=== PATIENT | female | born 1980 | race Caucasian/White ===

== ENCOUNTER 2016-05-08 09:59 | Day surgery (SDC) | payer OTHER ==
--- NOTE | 2016-05-06 16:19 | HP ---
DATE OF SURGERY: 05/08/2016 HISTORY OF PRESENT ILLNESS: The patient is a 35 year-old with history of epigastric pain radiating to her chest associated with some nausea, vomiting, bad heartburn with pizza in the past. She is doing a little better with bland food. Ultrasound showed cholelithiasis. I felt she had symptomatic cholelithiasis, chronic cholecystitis. PAST MEDICAL HISTORY: Denies any chronic illnesses. PAST SURGICAL HISTORY: Tubal. MEDICATIONS: None. ALLERGIES: NKDA. FAMILY HISTORY: Negative. SOCIAL HISTORY: No smoking or alcohol abuse. REVIEW OF SYSTEMS: Ten systems reviewed. No chest pain or palpitations other systems negative or noncontributory as above and per admission assessment. PHYSICAL EXAMINATION: GENERAL: No acute distress. HEENT: Sclerae nonicteric. NECK: No JVD. CHEST: Equal excursion, nonlabored breathing. CVS: Regular rate and rhythm. ABDOMEN: Soft, had some minimal tenderness epigastrium. No peritoneal signs. EXTREMITIES: No significant edema. NEURO: Alert, moving extremities symmetrically. No gross motor deficits noted. Ultrasound showed cholelithiasis. IMPRESSION: Symptomatic cholelithiasis, probable chronic cholecystitis. I feel the patient will benefit from cholecystectomy. She is shown the risk sheet, explained the procedure detail, but not limited to bleeding or infection, risk of trocar injury or hernia, small risk of bowel, bladder or blood vessel injury, small risk of bile leak, bile duct injury, retained stone or sludge possibly requiring further procedure either open or ERCP, general risk of anesthesia, deep venous thrombosis, pulmonary embolism, pneumonia, perioperative risk of aches, pains, bloating, constipation and/or loose stools possibly even chronic in nature. She understands all the above as well as the possibility of inability to improve her symptoms with the procedure possibly requiring endoscopy, other studies or procedures. She understands and agrees to the planned procedure, will proceed with outpatient laparoscopic cholecystectomy with possible open.
[~2016-05-08 09:59] MED LIST: BICITRA 30 ML CUP ONE; BICITRA 30 ML CUP PO ONE; BRIDION 200MG/2ML IV ONE; DILAUDID 1 MG/ML INJECTION IJ ONE; DIPRIVAN 200 MG/20 ML IV ONE; Decadron 4 MG INJ IV ONE; Lactated Ringers 1,000 ML IV ONE; Lactated Ringers 1,000 ML IV SCH; MEFOXIN 2 GM PREMIX** 50 ML IV ONE; OFIRMEV 100 ML IV ONE; Pepcid 20 MG VIAL IV ONE; Quelicin Fliptop 200 MG/10 ML IJ ONE; SUBLIMAZE 250 MCG/5 ML IJ ONE; Sensorcaine 0.25% 10 ML ONE; TORAdol 30 mg Injection IJ ONE; Versed 2 MG/2 ML Injection IV ONE; Zemuron 100 MG/10 ML IJ ONE; Zofran 4 MG/2 ML VIAL IV ONE
[2016-05-08] MEDS ORDERED: DEMEROL 50 MG ONE (12:21)
--- NOTE | 2016-05-08 13:18 | OP ---
SURGERY DATE: 05/08/16 SURGERY TIME: 1122 PREOPERATIVE DIAGNOSIS: 1. SYMPTOMATIC CHOLELITHIASIS, CHRONIC CHOLECYSTITIS. POSTOPERATIVE DIAGNOSIS: 1. SYMPTOMATIC CHOLELITHIASIS, CHRONIC CHOLECYSTITIS. PROCEDURE: 1. Laparoscopic cholecystectomy. SURGEON: Dr. Jackson Singleton. ANESTHESIA: General. ESTIMATED BLOOD LOSS: Minimal. INDICATIONS: As noted above. Risks and benefits explained in detail, but not limited to. Consent was obtained. DESCRIPTION OF PROCEDURE AND FINDINGS: The patient was taken to the OR. General anesthesia was induced. The abdomen was prepped and draped in the usual sterile fashion. After official time-out, no disagreement in planned procedure. Transverse incision made at the supraumbilical area. Fascia grasped and pulled upward. Veress needle inserted. Tested with saline. Pneumoperitoneum accomplished insufflating from an opening pressure of 0-15. 11 mm bladeless port and camera were inserted without difficulty followed by two 5 mm right upper quadrant ports and 5 mm epigastric port. The gallbladder was grasped. Had some fibrofatty omental adhesions. These were dissected from posterolateral to anterior fashion. Slowly, carefully the extensive inflammation of the cystic duct/infundibular area was slowly, carefully well skeletonized so the critical view was obtained both anteriorly and posteriorly. The cystic artery was clipped X 3 and divided in the usual fashion followed by clipping the cystic duct. Clipped X 3 and divided well away from the visible common duct. Again, this was all after the critical view had been obtained anteriorly and posteriorly. The gallbladder was slowly, carefully dissected free from its dense almost concrete attachments to the liver bed clipping additional oozing side branches off the cystic artery directly on the gallbladder wall as necessary. The gallbladder slowly, carefully dissected free from its dense almost concrete attachments to the liver bed staying directly on the gallbladder wall. Just prior to releasing the final attachments to the anterior end of the liver, one of the graspers tore a small hole in the thin wall of the anterior port of the gallbladder spilling a small amount of bile. There was no gross evidence of any stone spillage. This was suction irrigated as well as possible. Just prior to releasing the final attachments to the anterior edge of the liver, the liver bed reinspected. The clips noted to be in place in the cystic duct/cystic artery stumps. There were no signs of any active bleeding or bile leakage. It was felt there was no benefit of drain placement at this point. The gallbladder released from the final attachments to the anterior edge of the liver, placed in a Pleatman's sac, pulled out the epigastrium, and passed off. Port was replaced. A copious amount of irrigation irrigated lateral to the liver and the subhepatic space, irrigating until clear. Liver bed reinspected. Clips noted to be in place in the cystic duct/cystic artery stumps. There were no signs of any active bleeding or bile leakage. It was felt there was no benefit of any drain placement at this point. The fascial defects at the 10-11 port site in the epigastrium/umbilical area closed with puncture closure device under direct vision with the camera and #1 Vicryl. Pneumoperitoneum decompressed. Wounds irrigated out. Skin incisions closed with 4-0 Vicryl. Steri-strips and sterile dressing applied. 0.25% Marcaine local had been injected along each skin incision and fascia defect. The patient tolerated the procedure well. There were no immediate complications. Findings were discussed with the family out in the waiting area.
[2016-05-08 14:32] VITALS: BP 123/57; PULSE 80; O2SAT 98
== END 2016-05-08 14:00 | disposition home or self-care (01) ==
LOC: SDC 09:59
PROVIDERS: ATTEND Surgery
PROC: 0FT44ZZ Resection of Gallbladder, Percutaneous Endoscopic Approach (ICD-10-PCS; principal; 2016-05-08)
DX: K80.10 Calculus of gallbladder with chronic cholecystitis without obstruction (principal)
CPT/HCPCS: 00790; 36415; 84703; 88304; J0330; J0694; J1100; J1170; J1885; J2175; J2250; J2405; J2704; J3010

== ENCOUNTER 2018-09-20 09:09 | Emergency (ER) | payer BC, OTHER ==
[2018-09-20] MEDS ORDERED: PROTONIX 40 MG IV IV ONE ×2 (09:36→09:50)
[2018-09-20] MEDS ORDERED: Zofran 4 MG/2 ML VIAL IV ONE (09:36)
[2018-09-20] MEDS ORDERED: Sodium Chloride 0.9% 1000 ML 1,000 ML IV STA ×2 (09:36→11:33)
[2018-09-20] MEDS ORDERED: Zofran 4 MG/2 ML VIAL ONE (09:50)
[2018-09-20] MEDS ORDERED: Sodium Chloride 0.9% 1000 ML 1,000 ML ONE ×2 (09:50→11:40)
--- NOTE | 2018-09-20 09:57 | ERPHSYRPT ---
- History of Present Illness Time Seen by Provider: 09/20/18 09:30 Patient Subjective Stated Complaint: pt here for vomitng for 2 days, more than 10 times today, with chills, and aches all over, headache, pt denies fever, Triage Nursing Assessment: pt alert, walked in, resp easy, skin w/d/p,abd soft, pt states her urine is dark at home and she is having burning with urination, no edema , moves all ext well Physician History: PATIENT COMPLAINS OF ACUTE ONSET OF FREQUENT EMESIS, DRY HEAVES FOR 3 DAYS ASSOCIATED WITH FLANK PAIN, URINARY SYMPTOMS AND LEFT SIDED ABDOMINAL PAIN. HAD 10 EPISODES OF EMESIS TODAY. DENIES FEVER, CHILLS, OR DIARRHEA. Timing/Duration: day(s) Activities at Onset: none Quality: aching, cramping Abdominal Pain Onset Location: LLQ, flank Pain Radiation: other (BILATERAL FLANK PAIN) Severity of Pain-Max: moderate Severity of Pain-Current: moderate Modifying Factors: Improves With: urinating, vomiting Associated Symptoms: vomiting, weakness Previous symptoms: no prior history Allergies/Adverse Reactions: No Known Drug Allergies Allergy (Verified 05/08/16 10:31) Home Medications: No Home Meds [No Home Meds] 1 ea UD 04/27/16 [History] Hx Tetanus, Diphtheria Vaccination/Date Given: No Hx Influenza Vaccination/Date Given: No Hx Pneumococcal Vaccination/Date Given: No Immunizations Up to Date: Yes - Review of Systems Constitutional: No Fever, No Chills Eyes: No Symptoms Ears, Nose, & Throat: No Symptoms Respiratory: No Symptoms, No Cough, No Dyspnea Cardiac: No Symptoms, No Chest Pain, No Edema, No Syncope Abdominal/Gastrointestinal: Abdominal Pain, Nausea, Vomiting, No Diarrhea Genitourinary Symptoms: Dysuria, Frequency, Hematuria, Hesitancy Musculoskeletal: No Symptoms, No Back Pain, No Neck Pain Skin: No Rash Neurological: No Dizziness, No Focal Weakness, No Sensory Changes Psychological: No Symptoms Endocrine: No Symptoms All Other Systems: Reviewed and Negative - Past Medical History Pertinent Past Medical History: No Neurological History: No Pertinent History ENT History: No Pertinent History Cardiac History: No Pertinent History Respiratory History: No Pertinent History Endocrine Medical History: No Pertinent History Musculoskeletal History: No Pertinent History GI Medical History: No Pertinent History History: No Pertinent History Psycho-Social History: No Pertinent History Female Reproductive Disorders: No Pertinent History Other Medical History: tubal ligation - Past Surgical History Past Surgical History: Yes Neuro Surgical History: No Pertinent History Cardiac: No Pertinent History Respiratory: No Pertinent History Gastrointestinal: Cholecystectomy Genitourinary: No Pertinent History Musculoskeletal: No Pertinent History Female Surgical History: Tubal Ligation - Social History Smoking Status: Current every day smoker Exposure to second hand smoke: Yes Drug Use: none Patient Lives Alone: No - Female History Hx Last Menstrual Period: 7 days ago Hx Now: (UNKNOWN) - Nursing Vital Signs Nursing Vital Signs: Initial Vital Signs Temperature 102.0 F 09/20/18 09:18 Pulse Rate 88 09/20/18 09:18 Respiratory Rate 16 09/20/18 09:18 Blood Pressure 127/66 09/20/18 09:18 O2 Sat by Pulse Oximetry 100 09/20/18 09:18 Pain Scale Pain Intensity 0 - Physical Exam General Appearance: no apparent distress, alert Eye Exam: PERRL/EOMI, eyes nml inspection Ears, Nose, Throat Exam: normal ENT inspection, pharynx normal, moist mucous membranes Neck Exam: normal inspection, non-tender, supple, full range of motion Respiratory Exam: normal breath sounds, lungs clear, No respiratory distress Cardiovascular Exam: regular rate/rhythm, normal heart sounds Gastrointestinal/Abdomen Exam: soft, normal bowel sounds, tenderness (MINIMAL LLQ TENDERNESS), No mass Back Exam: normal inspection, normal range of motion, CVA tenderness (MODERATE BILATERAL CVA TENDERNESS), No vertebral tenderness Extremity Exam: normal inspection, normal range of motion, pelvis stable Neurologic Exam: alert, oriented x 3, cooperative, normal mood/affect, nml cerebellar function, sensation nml, No motor deficits Skin Exam: normal color, warm, dry SpO2 Interpretation: normal SpO2: 100 - CT Exams Abdomen/Pelvis CT Interpretation: Discussed w/radiologist (LEFT UPPER RENAL CORTICL SUBTLE HYPATTENUATION, RULE OUT FOCAL NEPHRITIS) Ordered Tests: Active Orders 24 hr Category Date Time Status IV Insertion STAT Care 09/20/18 09:36 Active ABDOMEN AND PELVIS W CONTRAST [CT] Stat Exams 09/20/18 09:37 Completed AMYLASE Stat Lab 09/20/18 09:58 Completed BLOOD CULTURE Stat Lab 09/20/18 09:58 Received CBC W DIFF Stat Lab 09/20/18 09:58 Completed CMP Stat Lab 09/20/18 09:58 Completed CULTURE,URINE Stat Lab 09/20/18 09:58 Received LIPASE Stat Lab 09/20/18 09:58 Completed UA W/RFX UR CULTURE Stat Lab 09/20/18 09:58 Completed Medication Summary Generic Name Dose Route Start Last Admin Trade Name Jared PRN Reason Stop Dose Admin Sodium Chloride 1,000 mls @ 999 mls/hr 09/20/18 11:33 09/20/18 11:40 Sodium Chloride 0.9% 1000 Ml IV 09/20/18 12:33 999 mls/hr .Q1H1M STA Administration Discontinued Medications Generic Name Dose Route Start Last Admin Trade Name Jared PRN Reason Stop Dose Admin Acetaminophen 650 mg 09/20/18 10:15 09/20/18 10:26 Tylenol 325 Mg PO 09/20/18 10:16 650 mg STAT STA Administration Acetaminophen Confirm 09/20/18 10:23 Tylenol 325 Mg Administered 09/20/18 10:24 Dose 650 mg .ROUTE .STK-MED ONE Fentanyl Citrate 100 mcg 09/20/18 10:17 09/20/18 11:08 Sublimaze 100 Mcg/2 Ml IV 09/20/18 10:18 100 mcg STAT ONE Administration Fentanyl Citrate Confirm 09/20/18 11:07 Sublimaze 100 Mcg/2 Ml Administered 09/20/18 11:08 Dose 100 mcg .ROUTE .STK-MED ONE Sodium Chloride 1,000 mls @ 999 mls/hr 09/20/18 09:36 09/20/18 09:57 Sodium Chloride 0.9% 1000 Ml IV 09/20/18 10:36 999 mls/hr .Q1H1M STA Administration Sodium Chloride Confirm 09/20/18 09:50 Sodium Chloride 0.9% 1000 Ml Administered 09/20/18 09:51 Dose 1,000 mls @ ud .ROUTE .STK-MED ONE Ceftriaxone Sodium/Dextrose 2 g in 50 mls @ 100 mls/hr 09/20/18 10:15 10:27 Rocephin 2 Gm-D5w 50ml Bag IV 09/20/18 10:44 100 ml/hr STAT STA 100 mls/hr Administration Ceftriaxone Sodium/Dextrose Confirm 09/20/18 10:23 Rocephin 2 Gm-D5w 50ml Bag Administered 09/20/18 10:24 Dose 2 g in 50 mls @ ud IV .STK-MED ONE Sodium Chloride Confirm 09/20/18 11:40 Sodium Chloride 0.9% 1000 Ml Administered 09/20/18 11:41 Dose 1,000 mls @ ud .ROUTE .STK-MED ONE Ondansetron HCl 4 mg 09/20/18 09:36 09/20/18 09:57 Zofran 4 Mg/2 Ml Vial IV 09/20/18 09:37 4 mg STAT ONE Administration Ondansetron HCl Confirm 09/20/18 09:50 Zofran 4 Mg/2 Ml Vial Administered 09/20/18 09:51 Dose 4 mg .ROUTE .STK-MED ONE Pantoprazole Sodium 40 mg 09/20/18 09:36 09/20/18 09:57 Protonix 40 Mg Iv IV 09/20/18 09:37 40 mg STAT ONE Administration Pantoprazole Sodium Confirm 09/20/18 09:50 Protonix 40 Mg Iv Administered 09/20/18 09:51 Dose 40 mg IV .STK-MED ONE Lab/Rad Data: Laboratory Result Diagrams 09/20/18 09:58 09/20/18 09:58 Laboratory Results 09/20/18 09/20/18 09/20/18 Range/Units 09:58 09:58 09:58 WBC 9.8 (4.0-10.5) K/mm3 RBC 3.77 L (4.1-5.4) M/mm3 Hgb 11.9 L (12.0-16.0) gm/dl Hct 35.1 (35-47) % MCV 93.1 (78-100) fl MCH 31.5 (26-32) pg MCHC 33.9 (32-36) g/dl RDW 12.6 (11.5-14.0) % Plt Count 201 (150-450) K/mm3 MPV 9.9 H (6-9.5) fl Gran % 76.5 H (36.0-66.0) % Eos # (Auto) 0.02 (0-0.5) Absolute Lymphs (auto) 1.17 (1.0-4.6) Absolute Monos (auto) 1.11 (0.0-1.3) Lymphocytes % 11.9 L (24.0-44.0) % Monocytes % 11.3 (0.0-12.0) % Eosinophils % 0.2 (0.00-5.0) % Basophils % 0.1 (0.0-0.4) % Absolute Granulocytes 7.53 H (1.4-6.9) Basophils # 0.01 (0-0.4) Sodium 141 (137-145) mmol/L Potassium 3.8 (3.5-5.1) mmol/L Chloride 105 (98-107) mmol/L Carbon Dioxide 26 (22-30) mmol/L Anion Gap 13.1 (5-15) MEQ/L BUN 12 (7-17) mg/dL Creatinine 0.80 (0.52-1.04) mg/dL Estimated GFR > 60.0 ML/MIN Glucose 105 (74-106) mg/dL Calcium 8.9 (8.4-10.2) mg/dL Total Bilirubin 0.60 (0.2-1.3) mg/dL AST 15 (14-36) U/L ALT 12 (0-35) U/L Alkaline Phosphatase 70 (38-126) U/L Serum Total Protein 6.8 (6.3-8.2) g/dL Albumin 3.8 (3.5-5.0) g/dL Amylase 45 (30-110) U/L Lipase 28 (23-300) U/L Urine Color YELLOW (YELLOW) Urine Appearance CLOUDY (CLEAR) Urine pH 6.0 (5-6) Ur Specific [place] 1.016 (1.005-1.025) Urine Protein 100 (Negative) Urine Ketones NEGATIVE (NEGATIVE) Urine Blood MODERATE (0-5) Giovanny/ul Urine Nitrite POSITIVE (NEGATIVE) Urine Bilirubin NEGATIVE (NEGATIVE) Urine Urobilinogen NEGATIVE (0-1) mg/dL Ur Leukocyte Esterase MODERATE (NEGATIVE) Urine WBC (Auto) >100 (0-5) /HPF Urine RBC (Auto) 16-25 (0-2) /HPF U Epithel Cells (Auto) FEW (FEW) /HPF Urine Bacteria (Auto) PACKED (NEGATIVE) /HPF Urine Mucus (Auto) SLIGHT (NEGATIVE) /HPF Urine Culture Reflexed YES (NO) Urine Glucose NEGATIVE (NEGATIVE) mg/dL - Progress Progress: improved Progress Note: 09/20/18 09:58 IV NORMAL SALINE BOLUS 1 LITER/HR X 2, ZOFRAN 4MG, IV PROTONIX 40MG IV, TYLENOL 650MG ORALLY 09/20/18 12:18, URINE POSITIVE WBC>100, RBC 16-25, SCOOTER PACKED, AFTER 2 SETS OF BLOOD CULTURES ADMINISTERED ROCEPHIN 2GM IVPB Counseled pt/family regarding: lab results, diagnosis, need for follow-up, rad results - Departure Departure Disposition: Home Clinical Impression: ACUTE CYSTITIS Condition: Stable Critical Care Time: No Referrals: [facility] [Primary Care Provider] - Additional Instructions: ANTIBIOTIC LEVAQUIN 500MG DAILY FOR 10 DAYS. PYRIDIUM 100MG AFTER MEALS FOR 2 DAYS. DRINK PLENTY OF FLUIDS. NORCO 5/325 EVERY 6 HOURS FOR PAIN. ZOFRAN 4MG EVERY 4 HOURS FOR NAUSEA. CONSULT YOUR PRIMARY CARE PROVIDER FOR FOLLOWUP. Prescriptions: Hydrocodone/APAP 5-325 Tab^^^ [Dora 5-325 Tablet^^^] 1 each PO Q6HPRN PRN #8 tablet MDD 4 PRN Reason: Pain Ondansetron ODT 4 MG [Zofran Odt 4 mg] 4 mg PO Q6H PRN PRN #10 tab.rapdis PRN Reason: Nausea Levofloxacin [Levaquin] 500 mg PO DAILY #10 tablet Phenazopyridine HCl [Pyridium] 100 mg PO PC #6 tablet
[2018-09-20 10:01] LABS: BASOPHIL % 0.1 % (0.0-0.4); Basophil (Absolute #) 0.01 (0-0.4); Eosinophil % 0.2 % (0.00-5.0); Eosinophil (Absolute #) 0.02 (0-0.5); Granulocyte Absolute (ANC) 7.53 (1.4-6.9); Granulocytes % 76.5 % (36.0-66.0); Hematocrit 35.1 % (35-47); Hemoglobin 11.9 gm/dl (12.0-16.0); Lymphocyte (Absolute #) 1.17 (1.0-4.6); Lymphocytes % 11.9 % (24.0-44.0); Mean Cell Volume 93.1 fl (78-100); Mean Corpuscular Hgb Concent. 33.9 g/dl (32-36); Mean Platelet Volume 9.9 fl (6-9.5); Monocyte (Absolute #) 1.11 (0.0-1.3); Monocytes % 11.3 % (0.0-12.0); Platelet Count 201 K/mm3 (150-450); Red Blood Count 3.77 M/mm3 (4.1-5.4); Red Cell Distribution Width 12.6 % (11.5-14.0); White Blood Count 9.8 K/mm3 (4.0-10.5)
[2018-09-20 10:02] LABS: Mean Corpuscular Hemoglobin 31.5 pg (26-32)
[2018-09-20 10:08] LABS: Appearance CLOUDY (CLEAR); Bacteria PACKED /HPF (NEGATIVE); Bilirubin NEGATIVE (NEGATIVE); Blood MODERATE Ery/ul (0-5); Epithelial Cells FEW /HPF (FEW); Glucose NEGATIVE (NEGATIVE); Ketones NEGATIVE (NEGATIVE); Leukocyte Esterase MODERATE (NEGATIVE); Mucus SLIGHT /HPF (NEGATIVE); Nitrite POSITIVE (NEGATIVE); Protein,Urine Dip 100 (Negative); Specific Gravity 1.016 (1.005-1.025); Urobilinogen NEGATIVE mg/dL (0-1); WBC >100 /HPF (0-5)
[2018-09-20 10:15] LABS: ALBUMIN 3.8 g/dL (3.5-5.0); ALKALINE PHOSPHATASE 70 U/L (38-126); AMYLASE 45 U/L (30-110); ANION GAP 13.1 MEQ/L (5-15); BLOOD UREA NITROGEN 12 mg/dL (7-17); CHLORIDE 105 mmol/L (98-107); Calcium 8.9 mg/dL (8.4-10.2); Carbon Dioxide 26 mmol/L (22-30); Glucose 105 mg/dL (74-106); LIPASE 28 U/L (23-300); Potassium 3.8 mmol/L (3.5-5.1); SGOT/AST 15 U/L (14-36); SGPT/ALT 12 U/L (0-35); SODIUM 141 mmol/L (137-145); Total Protein 6.8 g/dL (6.3-8.2)
[2018-09-20] MEDS ORDERED: ROCEPHIN 2 Gm-D5w 50ML BAG** 2 G/50 ML IVPB IV STA (10:15)
[2018-09-20] MEDS ORDERED: TYLENOL 325 MG PO STA (10:15)
[2018-09-20] MEDS ORDERED: SUBLIMAZE 100 MCG/2 ML IV ONE (10:17)
[2018-09-20] MEDS ORDERED: TYLENOL 325 MG ONE (10:23)
[2018-09-20] MEDS ORDERED: ROCEPHIN 2 Gm-D5w 50ML BAG** 2 G/50 ML IVPB IV ONE (10:23)
[2018-09-20] MEDS ORDERED: SUBLIMAZE 100 MCG/2 ML ONE (11:07)
--- NOTE | 2018-09-20 11:08 | XRAY ---
Indication: Lower abdominal pain. Nausea and vomiting. Difficulty urinating. Multiple contiguous axial images obtained through the abdomen and pelvis using 80 cc Isovue 370 contrast only. Comparison: March 10, 2016. Lung bases demonstrates stable tiny left base calcified granulomas. No infiltrate or effusion. Heart is not enlarged. Noncontrasted stomach and bowel loops appear nonobstructed. Normal appendix. Markedly enlarging uterus with multiple fibroids, largest measuring 8.4 x 6.9 cm on the left. Interval cholecystectomy. No free fluid/air. Increasing splenomegaly today measuring 14.7 cm in greatest axial dimension. Left upper renal pole demonstrates subtle wedge-shaped cortical hypoattenuation, possible focal nephritis. Remaining liver, pancreas, spleen, adrenal glands, kidneys, ureters, bladder, and aorta appear unremarkable. No pathologic retroperitoneal lymphadenopathy. Osseous structures intact. No ventral or inguinal hernias. Impression: 1. Left upper renal cortical subtle hypoattenuation. Rule out focal nephritis. 2. Interval enlarging uterus with multiple fibroids. 3. Increasing splenomegaly. CT DI 21.78
[2018-09-20 13:49] VITALS: BP 108/46; PULSE 78; O2SAT 98
== END 2018-09-20 13:49 | disposition home or self-care (01) ==
LOC: ED 09:09
DX: N30.00 Acute cystitis without hematuria (principal)
CPT/HCPCS: 36000; 36415; 74177; 80053; 81001; 82150; 83690; 85025; 87040; 87077; 87086; 87186; 96360; 96361; 96365; 96374; 96375; 99284; J0696; J2405; J3010; A9270-GY

== ENCOUNTER 2019-03-25 16:48 | Inpatient (IN) | payer BC, OTHER ==
[2019-05-27] MEDS ORDERED: Lactated Ringers 1,000 ML IV ONE ×3 (08:18→11:07)
[2019-05-27] MEDS ORDERED: Lactated Ringers 1,000 ML IV SCH (08:30)
[2019-05-27 08:48] LABS: Hematocrit 37.1 % (35-47); Hemoglobin 12.4 gm/dl (12.0-16.0); Mean Cell Volume 94.4 fl (78-100); Mean Corpuscular Hemoglobin 31.6 pg (26-32); Mean Corpuscular Hgb Concent. 33.4 g/dl (32-36); Mean Platelet Volume 9.1 fl (7.5-11.0); Platelet Count 238 K/mm3 (150-450); Red Blood Count 3.93 M/mm3 (4.1-5.4); Red Cell Distribution Width 12.5 % (11.5-14.0); White Blood Count 6.3 K/mm3 (4.0-10.5)
[2019-05-27 09:01] LABS: ALBUMIN 3.9 g/dL (3.5-5.0); ALKALINE PHOSPHATASE 76 U/L (38-126); ANION GAP 12.3 MEQ/L (5-15); BLOOD UREA NITROGEN 12 mg/dL (7-17); CHLORIDE 106 mmol/L (98-107); Calcium 8.9 mg/dL (8.4-10.2); Carbon Dioxide 26 mmol/L (22-30); Creatinine 1 0.68 mg/dL (0.52-1.04); Glucose 98 mg/dL (74-106); Potassium 4.5 mmol/L (3.5-5.1); SGOT/AST 21 U/L (14-36); SGPT/ALT 12 U/L (0-35); SODIUM 140 mmol/L (137-145); Total Protein 6.8 g/dL (6.3-8.2)
[2019-05-27] MEDS ORDERED: KEFZOL 1 GM/50 ML PREMIX** 1 GM/50 ML IVPB IV SCH ×2 (09:15→18:00)
[2019-05-27] MEDS ORDERED: Sensorcaine 0.25% 10 ML ONE (09:47)
[2019-05-27] MEDS ORDERED: SUBLIMAZE 100 MCG/2 ML ONE ×2 (09:53→11:43)
[2019-05-27] MEDS ORDERED: Zemuron 100 MG/10 ML ONE ×3 (09:53→10:49)
[2019-05-27] MEDS ORDERED: Quelicin Fliptop 200 MG/10 ML ONE (09:53)
[2019-05-27] MEDS ORDERED: DIPRIVAN 200 MG/20 ML IV ONE (09:53)
[2019-05-27] MEDS ORDERED: Zofran 4 MG/2 ML VIAL ONE (11:10)
[2019-05-27] MEDS ORDERED: BRIDION 200MG/2ML IV ONE (11:10)
[2019-05-27] MEDS ORDERED: TORAdol 30 mg Injection ONE (11:10)
[2019-05-27] MEDS ORDERED: Decadron 4 MG INJ ONE ×2 (11:10)
[2019-05-27] MEDS ORDERED: DILAUDID 2 MG INJECTION ONE (11:21)
[2019-05-27 11:28] LABS: ABO TYPING O; Antibody Screen NEGATIVE (NEGATIVE); RH TYPING POSITIVE
[2019-05-27 13:13] LABS: Appearance CLEAR (CLEAR); Bilirubin NEGATIVE (NEGATIVE); Blood NEGATIVE Ery/ul (0-5); Glucose NEGATIVE (NEGATIVE); Ketones NEGATIVE (NEGATIVE); Leukocyte Esterase NEGATIVE (NEGATIVE); Nitrite NEGATIVE (NEGATIVE); Protein,Urine Dip NEGATIVE (Negative); Specific Gravity 1.006 (1.005-1.025); Urobilinogen NEGATIVE mg/dL (0-1)
[2019-05-27] MEDS ORDERED: MORPHINE SULFATE 4 MG INJ IV PRN ×2 (13:14)
[2019-05-27] MEDS ORDERED: MORPHINE SULFATE 2 MG INJ IV PRN (13:14)
[2019-05-27] MEDS ORDERED: PERCOCET TABLET 5/325MG PO PRN (13:17)
[2019-05-27] MEDS ORDERED: Zofran 4 MG/2 ML VIAL IV PRN (13:17)
[2019-05-27] MEDS: Lactated Ringers 1,000 ML IV SCH ×2 (14:09→22:44)
[2019-05-27] MEDS: Reglan 10 MG/2 ML IV SCH ×2 (14:10→21:47)
--- NOTE | 2019-05-27 14:41 | OP ---
SURGERY DATE/TIME: 05/27/2019 0955 PREOPERATIVE DIAGNOSIS: Symptomatic fibroid uterus. POSTOPERATIVE DIAGNOSIS: Symptomatic fibroid uterus. PROCEDURE: Laparotomy, supracervical hysterectomy, bilateral salpingectomy SURGEON: Franck March D.O. COMMODITY SPECIALIST: Lolita White, surgical elastic knitter. ANESTHESIA: General. ESTIMATED BLOOD LOSS: 300 cc. COMPLICATIONS: None. INDICATIONS: The risks, benefits, indications and alternatives of the procedure were reviewed with the patient prior to procedure. The patient understood the risk of infection, bleeding, bowel injury, bladder injury, ureteral injury, incisional hernia, possible pelvic infection and thromboembolic disorder. The patient understands all of the risk factors and desires to have this procedure as a possible need to alleviate her current medical condition. DESCRIPTION OF PROCEDURE AND FINDINGS: At this point the patient is taken to the operating room where she was placed in supine position, given general anesthesia, prepped and draped in usual sterile fashion. A Pfannenstiel incision was made approximately 2 cm above the symphysis pubis and extended sharply to the rectus fascia. The fascia was then incised bilaterally with curved Wise scissors. The muscle of the anterior abdominal wall was in the midline by sharp and blunt dissection. The peritoneum was then grasped between two pickups elevated and entered sharply with Metzenbaum scissors. The pelvis is then examined and noted to have approximately 16 week size uterus with multiple fibroids with the largest being posterior uterus approximately 8 x 8 cm in dimension. At this point tenaculum was used and grasped the uterus bringing out through the incisional site where at this point the Impact LigaSure was used and was placed on the left adnexa where it was taken through the utero-ovarian ligament sparing the ovary and it was clamped, coagulated and cut taking down through the round ligament and taking down through the vasculature of left lower uterine segment. From that point the anterior lip of broad ligament was then incised on bladder reflection to the midline on its side. The same procedure was performed on the right side where the LigaSure Impact was taken through the right utero-ovarian ligament taking to round ligament and towards the uterine vasculature where the anterior lip of broad ligament was incised and the bladder was then gently dissected off of the lower uterine segment and the cervix with sponge stick. From this point the uterine artery was skeletonized bilaterally clamped between clamps trisected and suture ligated with 0 Vicryl suture. Again hemostasis was assured. From this point the Bovie tip was then used to amputate the uterus from the cervical stump and was done so without complication. The cervical stump was then closed with continuous stitch of 0 Vicryl suture. From this point bilateral fallopian tubes were then lifted and the LigaSure Impact was then placed on the mesosalpinx region excising the fallopian tubes bilaterally and was done so without complication. Bilateral ovaries appeared to be within normal limits and again were not removed during the procedure. From this point copious irrigation was then performed. At this point all lap, needle, sponge and instruments were removed from the patient's abdomen. The fascia was then closed with running 0 Vicryl. Hemostasis assured. The subcutaneous tissue is closed with 3-0 Vicryl suture and the skin was closed with absorbable wilma called Insorb and subsequent Dermabond placed on the incisional site. Sponge, lap, needle and instrument counts were correct x2. The patient was then taken to the recovery room in stable condition.
[2019-05-27] MEDS: TORAdol 30 mg Injection IV SCH ×2 (18:06→23:30)
[2019-05-27 18:14] LABS: Hemoglobin 11.8 gm/dl (12.0-16.0); Mean Cell Volume 93.8 fl (78-100); Mean Corpuscular Hemoglobin 31.6 pg (26-32); Mean Corpuscular Hgb Concent. 33.7 g/dl (32-36); Mean Platelet Volume 8.9 fl (7.5-11.0); Platelet Count 236 K/mm3 (150-450); Red Blood Count 3.73 M/mm3 (4.1-5.4); Red Cell Distribution Width 12.4 % (11.5-14.0); White Blood Count 15.5 K/mm3 (4.0-10.5)
[2019-05-28 04:37] LABS: Hematocrit 31.7 % (35-47); Hemoglobin 10.6 gm/dl (12.0-16.0); Mean Cell Volume 94.3 fl (78-100); Mean Corpuscular Hemoglobin 31.5 pg (26-32); Mean Corpuscular Hgb Concent. 33.4 g/dl (32-36); Mean Platelet Volume 8.8 fl (7.5-11.0); Platelet Count 228 K/mm3 (150-450); Red Blood Count 3.36 M/mm3 (4.1-5.4); Red Cell Distribution Width 12.4 % (11.5-14.0)
[2019-05-28 04:58] LABS: ALKALINE PHOSPHATASE 65 U/L (38-126); ANION GAP 9.8 MEQ/L (5-15); BLOOD UREA NITROGEN 9 mg/dL (7-17); CHLORIDE 107 mmol/L (98-107); Calcium 8.3 mg/dL (8.4-10.2); Carbon Dioxide 24 mmol/L (22-30); Creatinine 1 0.59 mg/dL (0.52-1.04); Glucose 125 mg/dL (74-106); Potassium 4.4 mmol/L (3.5-5.1); SGOT/AST 22 U/L (14-36); SGPT/ALT 13 U/L (0-35); SODIUM 137 mmol/L (137-145); Total Protein 5.6 g/dL (6.3-8.2)
[2019-05-28] MEDS: Reglan 10 MG/2 ML IV SCH ×3 (05:49→21:24)
[2019-05-28] MEDS: TORAdol 30 mg Injection IV SCH ×4 (05:49→23:29)
[2019-05-28] MEDS: Lactated Ringers 1,000 ML IV SCH ×2 (06:06→16:58)
[2019-05-28] MEDS: KEFZOL 1 GM/50 ML PREMIX** 1 GM/50 ML IVPB IV SCH ×2 (09:49→18:11)
[2019-05-28 17:32] LABS: Absolute Neutrophil Ct (ANC) 10.37 (1.4-6.9); BASOPHIL % 0.1 % (0.0-0.4); Basophil (Absolute #) 0.02 (0-0.4); Eosinophil % 0.3 % (0.00-5.0); Eosinophil (Absolute #) 0.05 (0-0.5); Hematocrit 31.8 % (35-47); Hemoglobin 10.4 gm/dl (12.0-16.0); Lymphocyte (Absolute #) 2.92 (1.0-4.6); Lymphocytes % 20.3 % (24.0-44.0); Mean Cell Volume 96.4 fl (78-100); Mean Corpuscular Hemoglobin 31.5 pg (26-32); Mean Corpuscular Hgb Concent. 32.7 g/dl (32-36); Neutrophil % 72.3 % (36.0-66.0); Platelet Count 198 K/mm3 (150-450); Red Cell Distribution Width 12.7 % (11.5-14.0); White Blood Count 14.4 K/mm3 (4.0-10.5)
[2019-05-29] MEDS: Lactated Ringers 1,000 ML IV SCH (02:15)
[2019-05-29] MEDS: Reglan 10 MG/2 ML IV SCH (03:29)
[2019-05-29 04:41] LABS: Hematocrit 27.8 % (35-47); Mean Cell Volume 97.2 fl (78-100); Mean Corpuscular Hemoglobin 31.5 pg (26-32); Mean Corpuscular Hgb Concent. 32.4 g/dl (32-36); Mean Platelet Volume 9.1 fl (7.5-11.0); Platelet Count 153 K/mm3 (150-450); Red Blood Count 2.86 M/mm3 (4.1-5.4); Red Cell Distribution Width 12.8 % (11.5-14.0); White Blood Count 8.4 K/mm3 (4.0-10.5)
[2019-05-29] MEDS: TORAdol 30 mg Injection IV SCH (06:06)
--- NOTE | 2019-05-29 06:30 | PCM.DS ---
Discharge Summary Date of Admission: 05/27/19 08:02 Date of Discharge: may 29 2019 Admitting Physician: LINDA ALVAREZ DO Primary Care Provider: [facility] Allergies Allergies No Known Drug Allergies Allergy (Verified 05/27/19 08:42) Hospital Summary - Vitals & Intake/Output Vital Signs: Vital Signs Temperature 97.9 F 05/29/19 04:00 Pulse Rate 73 05/29/19 04:00 Respiratory Rate 16 05/29/19 04:00 Blood Pressure 99/49 05/29/19 04:00 O2 Sat by Pulse Oximetry 98 05/29/19 04:00 Intake & Output: Intake & Output 05/26/19 05/27/19 05/28/19 05/29/19 11:59 11:59 11:59 11:59 Intake Total 3220 4053 Output Total 1650 1300 Balance 1570 2753 Weight 86.636 kg - Lab Result Diagrams: 05/29/19 04:36 05/28/19 05:01 Lab Results-Last 24 Hrs: Lab Results-Last 24 Hours 05/28/19 05/29/19 Range/Units 17:25 04:36 WBC 14.4 H 8.4 (4.0-10.5) K/mm3 RBC 3.30 L 2.86 L (4.1-5.4) M/mm3 Hgb 10.4 L 9.0 L (12.0-16.0) gm/dl Hct 31.8 L 27.8 L (35-47) % MCV 96.4 97.2 (78-100) fl MCH 31.5 31.5 (26-32) pg MCHC 32.7 32.4 (32-36) g/dl RDW 12.7 12.8 (11.5-14.0) % Plt Count 198 153 (150-450) K/mm3 MPV 9.0 9.1 (7.5-11.0) fl Gran % 72.3 H (36.0-66.0) % Eos # (Auto) 0.05 (0-0.5) Absolute Lymphs (auto) 2.92 (1.0-4.6) Absolute Monos (auto) 1.00 (0.0-1.3) Lymphocytes % 20.3 L (24.0-44.0) % Monocytes % 7.0 (0.0-12.0) % Eosinophils % 0.3 (0.00-5.0) % Basophils % 0.1 (0.0-0.4) % Absolute Granulocytes 10.37 H (1.4-6.9) Basophils # 0.02 (0-0.4) Micro Results-Entire Visit: Microbiology 05/27/19 10:07 Urine Culture - Preliminary Catherized NO GROWTH TO DATE Discharge Exam Wound Assessment: Skin/Wound Assessment Wound/Incision Assessment Start: 05/28/19 01: 56 Text: Status: Active Freq: Q4H Protocol: Document 05/29/19 04:00 MG (Rec: 05/29/19 04:47 MG [id number]) Wound/Incision Assessment Lower Medial Abdomen Wound Assessment Shift Assessment Wound Type Incision Wound Stage Non Pressure Wound Drainage Amount None General Appearance Well Approximated Asymptomatic Open to air Surrounding Tissue [place] Comment Horizontal abdominal incision, well approximated, no redness , drainage or edema noted. Dermabond intact. - Discharge Discharge Date: 05/29/19 Disposition: Home, Self-Care Condition: Stable Prescriptions: No Action No Reportable Medications [No Reported Medications] Follow up with: [facility] [Primary Care Provider] - 1 Week LINDA ALVAREZ DO [ACTIVE STAFF] - 1 Week
[2019-05-29 07:08] VITALS: BP 98/52; PULSE 67; O2SAT 96
== END 2019-05-29 08:30 | disposition home or self-care (01) | DRG 743 ==
LOC: MED SURG 05-27 08:02 → EDSTATUS 05-27 08:11
PROVIDERS: ADMIT Obstetrics & Gynecology; ATTEND Obstetrics & Gynecology
PROC: 0UT94ZL Resection of Uterus, Supracervical, Percutaneous Endoscopic Approach (ICD-10-PCS; principal; 2019-05-27)
PROC: 0UT74ZZ Resection of Bilateral Fallopian Tubes, Percutaneous Endoscopic Approach (ICD-10-PCS; 2019-05-27)
DX: D25.9 Leiomyoma of uterus, unspecified (principal); N80.0 Endometriosis of uterus; N92.0 Excessive and frequent menstruation with regular cycle; R10.2 Pelvic and perineal pain
CPT/HCPCS: 36415; 58544; 80053; 81001; 84703; 85025; 85027; 86850; 86900; 86901; 87086; 88302; J0330; J0690; J1100; J1170; J1885; J2405; J2704; J3010